=== PATIENT | female | born 1990 | race African-American/Black ===

== ENCOUNTER 2017-02-08 09:53 | Emergency (ER) | payer MEDICARE, OTHER ==
[2017-02-10 07:34] LABS: CHLAMYDIA TRACH Detected (Not Detected); N GONOR Detected (Not Detected)
== END 2017-02-08 09:54 | disposition home or self-care (01) ==
LOC: CED 09:53
PROVIDERS: Physician Assistant Medical
DX: A59.01 Trichomonal vulvovaginitis (principal); Z20.2 Contact with and (suspected) exposure to infections with a predominantly sexual mode of transmission
CPT/HCPCS: 84703; 87491; 87591; 87808; 87905; 96372; 99284; J0696